=== PATIENT | female | born 1945 | race African-American/Black ===

== ENCOUNTER 2017-07-30 20:45 | Emergency (ER) | payer MEDICARE, MEDICAID ==
[2017-07-30] MEDS ORDERED: ACETAMINOPHEN 325 MG TABLET PO ONE (21:22)
--- NOTE | 2017-07-30 22:25 | RADIOLOGY REPORT (SQ) ---
EXAM DESCRIPTION: SHOULDER RIGHT 2 OR MORE VIEWS COMPLETED DATE/TIME: 07/30/2017 9:30 pm REASON FOR STUDY: pain s/p injury COMPARISON: None. NUMBER OF VIEWS: Four views right shoulder LIMITATIONS: None. FINDINGS: Normal bone density. Degenerative glenohumeral changes. Spurring along cuff insertion wi th additional probable calcific tendinitis. Clear right lung. No shoulder separation or dislocation . OTHER: No other significant finding. IMPRESSION: Chronic appearing changes as above. TECHNICAL DOCUMENTATION: JOB ID: [id number]
--- NOTE | 2017-07-30 22:33 | ER Document Report ---
ED Fall - General Chief Complaint: Fall Injury Stated Complaint: FALL,RIGHT SHOULDER INJURY, LEFT KNEE PAIN Time Seen by Provider: 07/30/17 22:32 Mode of Arrival: Ambulatory Information source: Patient TRAVEL OUTSIDE OF THE [place] IN LAST 30 DAYS: No - HPI Patient complains to provider of: Trip and fall, right shoulder injury Occurred: Just prior to arrival Where: Outdoors Context: Tripped Associated symptoms: None Location of injury/pain: Knee, Shoulder Quality of pain: Achy Severity: Moderate Pain Level: 3 Notes: Patient is a 72-year-old female who presents to the emergency room today status post trip and fall over the curb, landing on her left knee and her right shoulder, reporting right shoulder pain with mild left knee pain, was able to ambulate on the scene right is a fall, denies a head injury or loss of consciousness - Related data Allergies/Adverse Reactions: No Known Allergies Allergy (Unverified 07/30/17 21:17) Past Medical History - General Information source: Patient - Social History Smoking Status: Never Smoker Family History: Reviewed & Not Pertinent Patient has suicidal ideation: No Patient has homicidal ideation: No Renal/ Medical History: Denies: Hx Peritoneal Dialysis Review of Systems - Review of Systems Constitutional: No symptoms reported EENT: No symptoms reported Cardiovascular: No symptoms reported Respiratory: No symptoms reported Gastrointestinal: No symptoms reported Genitourinary: No symptoms reported Female Genitourinary: No symptoms reported Musculoskeletal: See HPI Skin: No symptoms reported Hematologic/Lymphatic: No symptoms reported Neurological/Psychological: No symptoms reported -: Yes All other systems reviewed and negative Physical Exam - Vital signs Vitals: Temp Pulse Resp BP Pulse Ox 98.4 F 84 20 152/50 H 100 07/30/17 20:50 07/30/17 20:50 07/30/17 20:50 07/30/17 20:50 07/30/17 20:50 - Notes Notes: - General General appearance: Appears well, Alert In distress: None - HEENT Head: Normocephalic, Atraumatic Eyes: Normal Conjunctiva: Normal Extraocular movements intact: Yes Eyelashes: Normal Pupils: PERRL - Respiratory Respiratory status: No respiratory distress - Cardiovascular Rhythm: Regular - Abdominal Inspection: Normal - Back Back: Normal - Extremities General upper extremity: Right shoulder with pain with range of motion testing, tenderness to palpate over the AC joint, distal sensation and motor is intact with 2+ radial pulses General lower extremity: Left knee with mild tenderness to palpate over the lateral joint line, no deformity, no erythema, no swelling, normal range of motion, distal sensation and motor is intact - Neurological Neuro grossly intact: Yes Orientation: AAOx4 [place] Coma Scale Eye Opening: Spontaneous [place] Coma Scale Verbal: Oriented [place] Coma Scale Motor: Obeys Commands [place] Coma Scale Total: 15 - Psychological Associated symptoms: Normal affect, Normal mood - Skin Skin Temperature: Warm Skin Moisture: Dry Skin Color: Normal Course - Re-evaluation Re-evalutation: 07/31/17 01:01 Imaging findings unremarkable, patient was placed in a sling and advised to follow-up with orthopedics, ice and elevate, take Tylenol or Motrin as needed for pain, return if symptoms worsen, patient acknowledges understanding and agreement with this plan - Vital Signs Vital signs: Temp Pulse Resp BP Pulse Ox 97.9 F 79 18 144/53 H 98 07/30/17 22:39 07/30/17 22:39 07/30/17 22:39 07/30/17 22:39 07/30/17 22:39 - Diagnostic Test Radiology reviewed: Image reviewed, Reports reviewed Procedures - Immobilization Right Shoulder Time completed: 01:02 Pre-Proc Neuro Vasc Exam: Normal Immobilizer type: Sling Performed by: PCT Post-Proc Neuro Vasc Exam: Normal Alignment checked and good: Yes Discharge - Discharge Clinical Impression: Right shoulder injury Qualifiers: Encounter type: initial encounter Qualified Code(s): S49.91XA - Unspecified injury of right shoulder and upper arm, initial encounter Contusion of left knee Qualifiers: Encounter type: initial encounter Qualified Code(s): S80.02XA - Contusion of left knee, initial encounter Condition: Stable Disposition: HOME, SELF-CARE Instructions: Contusion ([facility]), Ice Packs ([facility]), Shoulder Injury ([facility]), Sling as Treatment ([facility]), Sprained Knee ([facility]) Additional Instructions: Follow up with your primary care provider and an orthopedic surgeon in one to 2 days. Return to the emergency room immediately if symptoms worsen or any additional concerns. Ice and elevate the affected extremity.
[2017-07-30 22:44] VITALS: BP 144/53
== END 2017-07-30 22:45 | disposition home or self-care (01) ==
LOC: ER 20:45
DX: S80.02XA Contusion of left knee, initial encounter (principal); S49.91XA Unspecified injury of right shoulder and upper arm, initial encounter; M25.511 Pain in right shoulder; M25.562 Pain in left knee; W10.1XXA Fall (on)(from) sidewalk curb, initial encounter
CPT/HCPCS: 99283; 73030; A9270